=== PATIENT | female | born 1945 | race Caucasian/White ===

== ENCOUNTER 2018-05-21 02:26 | Day surgery (SDC) | payer OTHER ==
[~2018-05-21] VITALS: Ht 162.6 cm; Wt 89.8 kg
[~2018-05-21 02:26] MED LIST: ALBU90OI INH; ASPI325EC PO; BACL10 PO; CYCL10 PO; FLUC150A PO; FLUSAL2505 INH; FURO40 PO; GABA100 PO; LOSA50 PO; Micro-K10 MEQ; Mobic7.5 MG PO; Norco 10-325 T1 EACH PO; Norco 5-325 Ta1 EACH PO; OMEP20ER PO; ONDA4 PO; ONDA4ODT MM; OXYC5 PO; PROC10 PO
== END 2018-05-21 22:45 | disposition home or self-care (01) ==
LOC: ORSCMMR 02:26 → ORD 10:00 → ORSCMMR 10:00
PROVIDERS: Internal Medicine Gastroenterology
PROC: 0DBN8ZX Excision of Sigmoid Colon, Via Natural or Artificial Opening Endoscopic, Diagnostic (ICD-10-PCS; principal; 2018-05-21 10:00)
PROC: 0DBK8ZX Excision of Ascending Colon, Via Natural or Artificial Opening Endoscopic, Diagnostic (ICD-10-PCS; principal; 2018-05-21 10:00)
DX: Z12.11 Encounter for screening for malignant neoplasm of colon (principal); D12.2 Benign neoplasm of ascending colon; K63.5 Polyp of colon; I10 Essential (primary) hypertension
CPT/HCPCS: 88305; J7120

== ENCOUNTER 2019-02-20 08:25 | Emergency (ER) | payer OTHER ==
[~2019-02-20] VITALS: Ht 162.6 cm; Wt 92.5 kg
[2019-02-20] MEDS ORDERED: CEPH500 PO (09:15)
== END 2019-02-20 09:54 | disposition home or self-care (01) ==
LOC: ER 08:25
DX: S41.102A Unspecified open wound of left upper arm, initial encounter (principal); X58.XXXA Exposure to other specified factors, initial encounter; L25.9 Unspecified contact dermatitis, unspecified cause; Z79.899 Other long term (current) drug therapy; I10 Essential (primary) hypertension
CPT/HCPCS: 99283